=== PATIENT | female | born 2000 | race Caucasian/White ===

== ENCOUNTER 2025-04-26 14:48 | Outpatient (CLI) | payer OTHER ==
[2025-04-26] MEDS ORDERED: GADOTERATE MEGLUMINE 7.5 MMOL/15 ML VIAL IV ONE (17:10)
--- NOTE | 2025-04-26 18:46 | RADIOLOGY REPORT ---
CLINICAL INDICATION: REPETITIVE MOTION DISEASE TECHNIQUE: Multiplanar, multi-sequence MRI of the right wrist was performed without and with intravenous contrast. Contrast: 12 cc Clariscan COMPARISON: MR MRI UPPER EXTREMITY LEFT on DOS: 04/26/25 INTERPRETATION: Bones: There is no fracture. There is no marrow replacing lesion. Benign cysts in the trapezoid whi ch are likely degenerative in nature. Mild edema in the distal ulna. Joints: The joint spaces are maintained. Alignment is preserved. Trace fluid in the pisiform triquetr al joint. No synovitis. Ligaments: There is thickening and T2 hyperintensity in the dorsal and volar band of the scapholunate ligament consistent with sprain. There is a 5 x 5 by 6 mm T2 hyperintense lesion abutting the dorsal scapholunate ligament fibers consistent with a ganglion cyst. Lunotriquetral ligament is intact. TFCC: Degeneration of the foveal attachment of the TFCC without tear. Tendons: The dorsal extensor tendons are intact. The flexor tendons are intact. No tenosynovitis. Carpal tunnel: Flexor tendons within the carpal tunnel are intact. Median nerve intact. Neurovascular: Visualized ulna and radial nerves are intact. Muscles: Regional muscles are preserved in bulk and signal characteristics. Soft tissues: Unremarkable. Postcontrast images: Mild enhancement in the distal ulna. IMPRESSION: 1. Scapholunate ligament sprain with 5 mm ganglion cyst abutting the dorsal band of the scapholunate ligament in the right wrist. 2. Mild edema in the distal ulna and enhancement suggestive of sequelae of repetitive motion. Degener ative changes in the foveal attachment of the TFCC.
--- NOTE | 2025-04-26 18:54 | RADIOLOGY REPORT ---
CLINICAL INDICATION: REPETITIVE MOOTION DISEASE TECHNIQUE: Multiplanar, multi-sequence MRI of the left wrist was performed without and with i ntravenous contrast. Contrast: 12 cc Clariscan COMPARISON: None. INTERPRETATION: Bones: There is no fracture. There is no marrow replacing lesion. There are benign degenerative cys ts in the trapezoid. Joints: The joint spaces are maintained. Alignment is preserved. No significant joint effusion or syn ovitis. 4 x 4 x 4 mm cyst in the pisiform triquetral recess. Ligaments: The scapholunate and lunotriquetral ligaments are intact. Extrinsic volar ligaments are in tact. TFCC: Intact. Tendons: The dorsal extensor tendons are intact. Fluid in the 3rd dorsal extensor compartment. The fl exor tendons are intact. No tenosynovitis. Carpal tunnel: Flexor tendons within the carpal tunnel are intact. Median nerve intact. Neurovascular: Visualized ulna and radial nerves are intact. Muscles: Regional muscles are preserved in bulk and signal characteristics. Soft tissues: Unremarkable. Postcontrast: No pathologic enhancement. IMPRESSION: 1. Mild tenosynovitis of the extensor pollicis longus tendon sheath. 2. No acute bone or soft tissue injury. Mild degenerative changes in the triscaphe joint. 3. 4 mm cysts in the pisiform triquetral joint.
== END 2025-04-26 23:59 | disposition home or self-care (01) ==
LOC: MRI 14:48
PROVIDERS: ATTEND Emergency Medicine
DX: S63.8X1A Sprain of other part of right wrist and hand, initial encounter (principal); M70.832 Other soft tissue disorders related to use, overuse and pressure, left forearm; M70.831 Other soft tissue disorders related to use, overuse and pressure, right forearm; R60.0 Localized edema; M67.431 Ganglion, right wrist; M19.031 Primary osteoarthritis, right wrist; X58.XXXA Exposure to other specified factors, initial encounter; Y93.9 Activity, unspecified; Y92.89 Other specified places as the place of occurrence of the external cause; Y99.8 Other external cause status
CPT/HCPCS: 73223; A9575